=== PATIENT | male | born 1995 ===

== ENCOUNTER 2021-02-15 07:37 | Emergency (ER) | payer OTHER, SELFPAY ==
--- NOTE | 2021-02-15 07:52 | DI.US.S_ITS ---
PROCEDURE: US ABDOMEN LIMITED INDICATIONS: RUQ PAIN TECHNIQUE: Real-time scanning was performed of the abdominal and retroperitoneal organs, with image documentation. COMPARISON: None. FINDINGS: Liver: Liver is normal in size and homogeneous in echotexture. Gallbladder: There is no gallstone. No gallbladder wall thickening or pericholecystic fluid. Positive sonographic Osborn sign was noted during the study. Biliary ducts: Intrahepatic bile ducts are non-dilated. Extrahepatic bile duct caliber measures 4.4 mm. Normal is 6-7 mm or less in diameter, or 10 mm or less post-cholecystectomy. Pancreas: Visualized portions of the pancreas are sonographically normal. IMPRESSION: 1. Positive sonographic Osborn sign noted in an otherwise normal appearing gallbladder. Finding could represent early developing acute cholecystitis. No gallstone is seen. 2. No biliary ductal rest of the exam is unremarkable. Dictated by: Masoud Zamora M.D. on 02/15/2021 at 8:21 Approved by: Masoud Zamora M.D. on 02/15/2021 at 8:22
--- NOTE | 2021-02-15 07:53 | ED_ITS ---
HPI - General Adult General Chief complaint: Abdominal Pain Stated complaint: abdominal pain,throwing up,chills Time Seen by Provider: 02/15/21 07:41 Source: patient Mode of arrival: Ambulatory Limitations: no limitations History of Present Illness HPI narrative: Otherwise healthy 25-year-old male. Is active duty [place] he was here for evaluation of epigastric and right upper quadrant abdominal tenderness. He states the symptoms have been present for the past couple years. 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 He states that the discomfort comes and goes. He has had some diarrhea. This does not seem to changes abdominal pain at all. He has been taking Tums with only minimal improvement. He states that last evening the pain was very intense and he had a difficult time sleeping. The abdominal pain does cause him to throw up. No fevers. But is having chills. No urinary symptoms. No prior abdominal surgeries. Related Data Home Medications Medication Instructions Recorded Confirmed calcium carbonate 300 mg (750 mg) 300 mg PO BID PRN 02/15/21 02/15/21 chewable tablet (Tums) Previous Rx's Medication Instructions Recorded famotidine 10 mg tablet 10 mg PO DAILY #30 tab 02/15/21 Allergies Allergy/AdvReac Type Severity Reaction Status Date / Time No Known Drug Allergies Allergy Verified 02/15/21 07:55 Review of Systems Review of Systems ROS Unobtainable: All systems reviewed & are unremarkable except as noted in HPI and below Constitutional Constitutional: Reports chills and Denies fever(s) Cardiovascular Cardiovascular: Reports system reviewed and no additional complaints, except as documented Respiratory Respiratory: Reports system reviewed and no additional complaints, except as documented Gastrointestinal Gastrointestinal: Reports as per HPI, Reports system reviewed and no additional complaints, except as documented, Reports abdominal pain, Reports diarrhea, Reports nausea and Denies vomiting Genitourinary Genitourinary: Reports system reviewed and no additional complaints, except as documented Musculoskeletal Musculoskeletal: Reports system reviewed and no additional complaints, except as documented Integumentary/Breasts Skin/Breast: Reports system reviewed and no additional complaints, except as documented Neurologic Neurologic: Reports system reviewed and no additional complaints, except as documented Endocrine Endocrine: Reports system reviewed and no additional complaints, except as documented Hematologic/Lymphatic On Anticoagulants: No Allergic/Immunologic Allergic/Immunologic: Reports system reviewed and no additional complaints, except as documented Patient History Medical History (Updated 02/15/21 @ 08:27 by Navneet Gaviria DO) Patient denies medical problems Social History Smoking Status: Current every day smoker tobacco type: vaping Exam Initial Vital Signs Initial Vital Signs: Vital Signs Temperature 98.1 F 02/15/21 07:56 Pulse Rate 77 02/15/21 07:56 Respiratory Rate 16 02/15/21 07:56 Blood Pressure 114/75 02/15/21 07:56 Pulse Oximetry 100 02/15/21 07:56 Const General: cooperative, healthy appearing, comfortable and well developed Limitations: mental status not altered HENMT Head: normal to inspection and normocephalic Eyes General: appearance normal, both eyes and all related structures Resp Effort & Inspection: normal respiratory effort Auscultation: clear to auscultation bilaterally Cardio Rate: regular rate Rhythm: regular rhythm GI Inspection: normal to inspection and non-distended Palpation: soft, No firm and tender (Right upper quadrant/epigastric region) Back/Spine/Pelvis Back: No CVA tenderness Skin General: no rashes or lesions noted Lesions: no lesions Rashes: no rashes Neuro General: patient alert, patient awake, patient oriented x3 and moves all extremities Extrem General: normal to inspection and capillary refill normal Psych Appearance: grossly normal and well kempt Course Orders Ordered: ED Orders 02/15/21 07:52 US abdomen limited Stat Complete Blood Count AUTO DIFF Stat Comprehensive Metabolic Panel Stat Lipase Stat Vital Signs Vital signs: Vital Signs - 8 hr 02/15/21 07:56 Temperature 98.1 F Pulse Rate 77 Respiratory Rate 16 Blood Pressure 114/75 Pulse Oximetry 100 Medical Decision Making Lab Data Result diagrams: 02/15/21 08:15 02/15/21 08:15 Labs: Lab Results 02/15/21 02/15/21 Range/Units 08:15 08:15 WBC 6.1 (4.5-11.0) X10^3/uL RBC 4.87 (4.5-5.9) X10^6/uL Hgb 15.6 (13.5-17.5) g/dL Hct 45.8 (41-53) % MCV 94.1 (80-100) fL MCH 32.0 (26-34) PG MCHC 34.0 (30-36) % RDW 12.5 (11.6-14.8) % Plt Count 250 (150-400) X10^3/uL Neut % (Auto) 63.6 (50-75) % Lymph % (Auto) 27.2 (25-40) % [place] % (Auto) 7.1 (3-14) % Eos % (Auto) 1.3 L (2-4) % Baso % (Auto) 0.8 (0-2) % Neut # (Auto) 3900 (4959-3384) /uL Lymph # (Auto) 1700 (7890-4875) /uL [place] # (Auto) 400 (0-900) /uL Eos # (Auto) 100 (0-450) /uL Baso # (Auto) 0 (0-100) /uL Sodium 139 (137-145) mmol/L Potassium 4.4 (3.4-5.1) mmol/L Chloride 104 (98-107) mmol/L Carbon Dioxide 30 (22-32) mmol/L BUN 14 (9-20) mg/dL Creatinine 0.81 (0.66-1.25) mg/dL Estimated GFR > 60.0 (>60) mL/min BUN/Creatinine Ratio 17.3 (6-22) Glucose 97 (70-100) mg/dL Calcium 9.7 (8.4-10.2) mg/dL Total Bilirubin 0.7 (0.2-1.3) mg/dL AST 32 (17-59) IU/L ALT 40 (<50) IU/L Alkaline Phosphatase 68 (38-126) U/L Total Protein 8.1 (6.3-8.2) g/dL Albumin 4.9 (3.5-5.0) g/dL Globulin 3.2 (1.7-4.1) g/dL Albumin/Globulin Ratio 1.5 (1.0-2.8) Lipase 104 (23-300) U/L Urine Dip Bedside Urine Glucose Negative Bedside Urine Bilirubin - Negative Bedside Urine Ketone - Negative Urine Specific [place] 1.015 Bedside Urine Occult Blood - Negative Bedside Urine pH 7.5 Bedside Urine Protein - Negative Bedside Urine Urobilinogen - Negative Bedside Urine Nitrite - Negative Bedside Urine Leukocytes - Negative Esterase Point of care testing: Urine Dip Bedside Urine Glucose Negative Bedside Urine Bilirubin - Negative Bedside Urine Ketone - Negative Urine Specific [place] 1.015 Bedside Urine Occult Blood - Negative Bedside Urine pH 7.5 Bedside Urine Protein - Negative Bedside Urine Urobilinogen - Negative Bedside Urine Nitrite - Negative Bedside Urine Leukocytes - Negative Esterase Imaging Data US - abdomen: Radiologist's Impression: [address] [address] Ultrasound Report Signed Patient: Robert Beltran MR#: [id number] : 1995 Acct:[id number] Age/Sex: 25 / M Date of Service: 02/15/21 Loc: ED Accession Number: [id number] ?? Procedure: US abdomen limited Ordering Provider: Navneet Gaviria D.O. PROCEDURE:? US ABDOMEN LIMITED ? INDICATIONS:? RUQ PAIN ? TECHNIQUE:? Real-time scanning was performed of the abdominal and retroperitoneal organs, with image documentation.? ? COMPARISON:? None. ? FINDINGS:? ? Liver:? Liver is normal in size and homogeneous in echotexture.? ? Gallbladder:? There is no gallstone.? No gallbladder wall thickening or pericholecystic fluid.? Positive sonographic Osborn sign was noted during the study. ? Biliary ducts:? Intrahepatic bile ducts are non-dilated.? Extrahepatic bile duct caliber measures 4.4 mm.? Normal is 6-7 mm or less in diameter, or 10 mm or less post-cholecystectomy.? ? Pancreas:? Visualized portions of the pancreas are sonographically normal.? ? ? IMPRESSION:? 1. Positive sonographic Osborn sign noted in an otherwise normal appearing gallbladder.? Finding could represent early developing acute cholecystitis.? No gallstone is seen. 2. No biliary ductal rest of the exam is unremarkable.? Dictated by: Masoud Zamora M.D. on 02/15/2021 at 8:21 ? ? Approved by: Masoud Zamora M.D. on 02/15/2021 at 8:22?? [facility] Narrative Medical decision making narrative: Patient's labs unremarkable. Right upper quadrant ultrasound does show the sonographic Osborn sign but no other signs of gallbladder pathology. I think that acute cholecystitis is unlikely. He has had on and off pain for the past couple years. Plan abuse to start him on a H2 sathya. Will have him contact his medical department for follow-up to discuss further treatment potential referral to see Gastroenterology. He was given return precautions. He expressed understanding and agreement. Discharge Plan Departure Patient Disposition: Home Clinical Impression: Abdominal pain Instructions: DI for Abdominal Pain-Adult Activity Restrictions/Additional Instructions: I do recommend that you start taking a reflux medicine such as Pepcid/famotidine. You do need to follow-up with your medical department to dis cuss further workup and potential referrals. Return to the emergency department for any new symptoms Prescriptions: New famotidine 10 mg tablet 10 mg PO DAILY Qty: 30 RF: 0 No Action calcium carbonate [Tums] 300 mg (750 mg) Tablet,Chewable 300 mg PO BID PRN (Reason: Acid Reflux) RF: 0
[2021-02-15 07:56] VITALS: BP 114/75; PULSE 77; RESP 16; TEMP 36.7; O2SAT 100; BMI 23.8
[2021-02-15 08:34] LABS: Add Manual Diff / Slide Review NO; Basophils Absolute Auto 0 /uL (0-100); Basophils Percent Auto 0.8 % (0-2); Eosinophils Absolute Auto 100 /uL (0-450); Eosinophils Percent Auto 1.3 % (2-4); Hematocrit 45.8 % (41-53); Hemoglobin 15.6 g/dL (13.5-17.5); Lymphocytes Absolute Auto 1700 /uL (1100-4500); Lymphocytes Percent Auto 27.2 % (25-40); Mean Corpuscular Volume 94.1 fL (80-100); Monocytes Absolute Auto 400 /uL (0-900); Monocytes Percent Auto 7.1 % (3-14); Neutrophils Absolute Auto 3900 /uL (1500-7000); Neutrophils Percent Auto 63.6 % (50-75); Platelet Count 250 X10^3/uL (150-400); Red Blood Cell Count 4.87 X10^6/uL (4.5-5.9); Red Cell Distribution Width 12.5 % (11.6-14.8); White Blood Cell Count 6.1 X10^3/uL (4.5-11.0)
[2021-02-15 08:44] LABS: Alanine Aminotransferase 40 IU/L (<50); Albumin 4.9 g/dL (3.5-5.0); Albumin Globulin Ratio 1.5 (1.0-2.8); Alkaline Phosphatase 68 U/L (38-126); Aspartate Aminotransferase 32 IU/L (17-59); BUN Creatinine Ratio 17.3 (6-22); Bilirubin Total 0.7 mg/dL (0.2-1.3); Blood Urea Nitrogen 14 mg/dL (9-20); Calcium 9.7 mg/dL (8.4-10.2); Carbon Dioxide 30 mmol/L (22-32); Chloride 104 mmol/L (98-107); Estimated Glomerular Filt Rate > 60.0 mL/min (>60); Globulin 3.2 g/dL (1.7-4.1); Glucose 97 mg/dL (70-100); HEMOLYSIS < 15 (0-50); Lipase 104 U/L (23-300); Potassium 4.4 mmol/L (3.4-5.1); Sodium 139 mmol/L (137-145); Total Protein 8.1 g/dL (6.3-8.2)
[2021-02-15 09:14] VITALS: BP 121/74; PULSE 65; RESP 16
[2021-02-15 09:17] VITALS: BP 121/74; PULSE 65; O2SAT 100
== END 2021-02-15 09:18 | disposition home or self-care (01) ==
PROVIDERS: Emergency Provider Emergency Medicine
DX: R10.11 Right upper quadrant pain (principal)
CPT/HCPCS: 36415; 76705; 80053; 81003; 83690; 85025; 99284